=== PATIENT | female | born 1935 | race Caucasian/White ===

== ENCOUNTER 2017-06-17 23:15 | Emergency (ER) | payer MEDICARE, MEDICAID ==
[~2017-06-17] VITALS: Ht 162.6 cm; Wt 59.0 kg
[2017-06-17] MEDS ORDERED: FIBER CHOICE C1.5 GM PO (23:31)
[2017-06-17] MEDS ORDERED: OYSTER SHELL C500 M2 PO (23:32)
[2017-06-17] MEDS ORDERED: CARTIA XT240 MG PO (23:33)
[2017-06-17] MEDS ORDERED: LISINOPRIL40 MG PO (23:33)
[2017-06-17] MEDS ORDERED: METOPROLOL SUC100 M1 PO (23:34)
[2017-06-17] MEDS ORDERED: RANITIDINE HCL150 MG PO (23:35)
[2017-06-17] MEDS ORDERED: LEVOTHYROXINE0.1 MG PO (23:35)
[2017-06-17] MEDS ORDERED: FENOFIBRATE130 MG PO (23:36)
[2017-06-17] MEDS ORDERED: CHLORDIAZEPOXID10 MG PO (23:37)
--- OUTSIDE RECORDS SUMMARY | 2017-06-17 23:50 | External Medical Summary Rpt | CCD ---
Author Author , ROBERTO Organization ROBERTO Address Unknown Phone [email or web address] Providers Care Waxed Bag Machine Operator Name Role Phone JARRODSON EMERY, JARRODSON Unavailable Unavailable EMERY STROUD ALL, STROUD ALL Unavailable Unavailable GETACHEW, GETACHEW Unavailable Unavailable GETACHEW J, GETACHEW J Unavailable Unavailable GETACHEW J, GETACHEW J Unavailable Unavailable GETACHEW J G, GETACHEW J Unavailable Unavailable G GETACHEW J G, GETACHEW J Unavailable Unavailable G Vineet CHILEL, GETACHEW, Unavailable Unavailable J G VICENTE RAMIREZ, Unavailable Unavailable VICENTE RAMIREZ [facility], [facility] Un[facility], [facility] Unavailable Unavailable [facility], [facility], [facility] Unavailable Unavailable INC, [facility] NAVEEN JANET, NAVEEN Unavailable Unavailable JANET NAVEEN JANET, NAVEEN Unavailable Unavailable JANET [facility] Unavailable Unavailable IM[facility]ING [facility], [facility], Unavailable Unavailable [facility] SANDOVAL ELADIA, SANDOVAL Unavailable Unavailable ELADIA SANDOVAL ELADIA, SANDOVAL Unavailable Unavailable ELADIA BRIJESH SANDOVAL, Unavailable Unavailable BRIJESH SANDOVAL JR DWI, KRISTI Unavailable Unavailable JR DWI KRISTI TOBIAS DWI, KRISTI Unavailable Unavailable JR DWI Merline COSTA, Unavailable Unavailable Merline COSTA [facility], Unavailable Unavailable [facility] KARSON CANNON, Unavailable Unavailable KARSON CANNON [facility] Unavailable Unavailable #5, [facility] Purpose Continuity of Care Document - 11-22-2007 through 2016 Problems Code Diagnosis DOS Provider Status E039 HYPOTHYROID 01-19-2017 [facility] UNSPECIFIED I10 ESSENTIAL 01-19-2017 [facility] HYPERTENSIO N 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[facility] 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 N289 DISORDER OF 01-19-2017 [facility] URETER UNSPECIFIED E782 MIXED 09-22-2016 [facility] HYPERLIPIDE ISA [facility], [facility] N179 ACUTE 06-02-2016 [facility] UNSPECIFIED 4279 UNSPECIFIED 01-09-2014 [facility] DYSRHYTHMIA [facility] 91556 OTHER 11-01-2012 KRISTI TOBIAS SPECIFIED DWI CARDIAC DYSRHYTHMIA S 4019 UNSPECIFIED 09-17-2012 GETACHEW Hernandez ESSENTIAL HYPERTENSIO N 2449 UNSPECIFIED 09-06-2012 GETACHEW Hernandez HYPOTHYROID ISM 2724 OTHER AND 02-23-2012 GETACHEW Hernandez UNSPECIFIED HYPERLIPIDE ISA 5368 DYSPEPSIA&O 02-23-2012 GETACHEW Hernandez THER SPEC DISORDERS FUNCTION STOMACH 586 UNSPECIFIED 02-23-2012 GETACHEW Hernandez RENAL FAILURE 226 BENIGN 01-29-2012 SANDOVAL ELADIA NEOPLASM OF THYROID GLANDS 3804 IMPACTED 10-13-2011 GETACHEW Manley CERUMEN 66303 DISORDER OF 10-13-2011 GETACHEW Manley BONE AND CARTILAGE UNSPECIFIED 7295 PAIN IN 02-03-2011 [facility] TISSUES OF LIMB 81653 CORTICAL 12-16-2010 NAVEEN JANET SENILE CATARACT V0481 NEED 07-12-2010 [facility] PROPHYLACTI [facility] C VACCINATION &INOCULATIO N FLU 2689 UNSPECIFIED 02-22-2010 [facility] VITAMIN D [facility] DEFICIENCY 2859 UNSPECIFIED 02-22-2010 [facility] ANEMIA [facility] 460 ACUTE 07-27-2009 [facility] ITIS 193 MALIGNANT 02-08-2009 [facility] THYROID INC GLAND 32071 OTHER 02-08-2009 [place] DISEASES [facility] MEDICAL LUNG NOT IMAGING ELSEWHERE [facility] CLASSIFIED 54344 DIVERTICULO 07-16-2008 KASS[facility]DRA SIS OF [facility] COLON V7651 SPECIAL 07-16-2008 KASSANDRA SCREENING KARSON FOR MALIGNANT NEOPLASMS COLON Medications Na ND Rx Da Fi Fi Am Da Di Ph RX Ph St me C No te ll ll ou ys ag ar # ys at rm s nt no ma ic us Or Da si cy ia de te s n re d CH 00 10 10 0 12 30 77 CO Ac LO 55 -2 -2 0. [address] 50 4- 4- 00 37 ER ve IA 15 20 20 0 ZE 80 11 11 LINH PO 2 HN XI G DE 5 MG CA PS UL E CH 00 09 09 0 12 30 77 CO Ac LO 55 -2 -2 0. [address] 50 2- 2- 00 10 ER ve IA 15 20 20 0 ZE 80 11 11 LINH PO 2 HN XI G DE 5 MG CA PS UL E CH 00 08 08 0 12 30 77 CO Ac LO 55 -2 -2 0. [address] 50 5- 5- 00 99 ER ve IA 15 20 20 0 ZE 80 11 11 LINH PO 2 HN XI G DE 5 MG CA PS UL E CH 00 07 07 0 12 30 76 CO Ac LO 55 -2 -2 0. [address] 50 2- 2- 00 92 ER ve IA 15 20 20 0 ZE 80 11 11 LINH PO 2 HN XI G DE 5 MG CA PS UL E CH 00 06 06 0 12 30 76 NO Ac LO 55 -1 -1 0. [address] 50 7- 7- 00 51 LE ve IA 15 20 20 0 ET ZE 80 11 11 R PO 2 XI HE DE NR 5 Y MG CA PS UL E CH 00 04 05 1 12 30 76 CO Ac LO 55 -1 -1 0. [address] 50 5- 6- 00 88 ER ve IA 15 20 20 0 ZE 80 11 11 LINH PO 2 HN XI G DE 5 MG CA PS UL E CH 00 04 04 1 12 30 76 CO Ac LO 55 -1 -1 0. [address] 50 5- 5- 00 88 ER ve IA 15 20 20 0 ZE 80 11 11 LINH PO 2 HN XI G DE 5 MG CA PS UL E CH 00 03 03 0 12 30 75 CO Ac LO 55 -1 -1 0. [address] 50 4- 4- 00 53 ER ve IA 15 20 20 0 ZE 80 11 11 LINH PO 2 HN XI G DE 5 MG CA PS UL E CH 00 01 02 1 12 30 75 CO Ac LO 55 -1 -1 0. [address] 50 4- 2- 00 47 ER ve IA 15 20 20 0 ZE 80 11 11 LINH PO 2 HN XI G DE 5 MG CA PS UL E CH 00 01 01 1 12 30 75 CO Ac LO 55 -1 -1 0. [address] 50 4- 4- 00 47 ER ve IA 15 20 20 0 ZE 80 11 11 LINH PO 2 HN XI G DE 5 MG CA PS UL E CH 00 12 12 0 12 30 75 CO Ac LO 55 -1 -1 0. [address] 50 0- 0- 00 95 ER ve IA 15 20 20 0 ZE 80 10 10 LINH PO 2 HN XI G DE 5 MG CA PS UL E CH 00 11 11 0 12 30 74 CO Ac LO 55 -1 -1 0. [address] 50 1- 1- 00 60 ER ve IA 15 20 20 0 ZE 80 10 10 LINH PO 2 HN XI G DE 5 MG CA PS UL E CH 00 10 10 0 12 30 74 CO Ac LO 55 -0 -1 0. [address] 50 9- 1- 00 54 ER ve IA 15 20 20 0 ZE 80 10 10 LINH PO 2 HN XI G DE 5 MG CA PS UL E CH 00 08 09 1 12 30 73 CO Ac LO 55 -0 -0 0. [address] 50 5- 7- 00 01 ER ve IA 15 20 20 0 ZE 80 10 10 LINH PO 2 HN XI G DE 5 MG CA PS UL E CH 00 08 08 1 12 30 73 CO Ac LO 55 -0 -0 0. [address] 50 5- 5- 00 01 ER ve IA 15 20 20 0 ZE 80 10 10 LINH PO 2 HN XI G DE 5 MG CA PS UL E CH 00 06 07 1 12 30 73 CO Ac LO 55 -0 -0 0. [address] 50 8- 9- 00 39 ER ve IA 15 20 20 0 ZE 80 10 10 LINH PO 2 HN XI G DE 5 MG CA PS UL E CH 00 06 06 1 12 30 73 CO Ac LO 55 -0 -0 0. [address] 50 8- 8- 00 39 ER ve IA 15 20 20 0 ZE 80 10 10 LINH PO 2 HN XI G DE 5 MG CA PS UL E CH 00 02 05 3 12 30 72 CO Ac LO 55 -0 -0 0. [address] 50 5- 7- 00 24 ER ve IA 15 20 20 0 ZE 80 10 10 LINH PO 2 HN XI G DE 5 MG CA PS UL E CH 00 02 04 3 12 30 72 CO Ac LO 55 -0 -0 0. [address] 50 5- 7- 00 24 ER ve IA 15 20 20 0 ZE 80 10 10 LINH PO 2 HN XI G DE 5 MG CA PS UL E CH 00 02 03 3 12 30 72 CO Ac LO 55 -0 -0 0. [address] 50 5- 5- 00 24 ER ve IA 15 20 20 0 ZE 80 10 10 LINH PO 2 HN XI G DE 5 MG CA PS UL E CH 00 02 02 00 12 30 TO 72 CO Ac LO 55 -0 -1 0. TA [address] 50 5- 1- 00 L 24 ER ve IA 15 20 20 0 CA ZE 80 10 10 RE LINH PO 2 HN XI PH G DE AR 5 MA CY MG #5 CA PS UL E CH 00 07 01 02 12 30 TO 70 CO Ac LO 55 -2 -1 0. TA [address] 50 8- 4- 00 L 98 ER ve IA 15 20 20 0 CA ZE 80 09 10 RE LINH PO 2 HN XI PH G DE AR 5 MA CY MG #5 CA PS UL E BE 68 12 12 00 30 10 TO 71 NO Ac NZ 38 -0 -1 .0 TA 87 RF ti ON 20 1- 7- 00 L 33 LE ve AT 24 20 20 CA ET AT 80 09 09 RE R E 1 20 PH HE 0 AR NR MG MA Y CY CA PS #5 UL E CH 00 07 12 01 12 30 TO 70 CO Ac LO 55 -2 -1 0. TA [address] 50 8- 7- 00 L 98 ER ve IA 15 20 20 0 CA ZE 80 09 09 RE LINH PO 2 HN XI PH G DE AR 5 MA CY MG #5 CA PS UL E CH 00 07 11 00 12 30 TO 70 CO Ac LO 55 -2 -0 0. TA [address] 50 8- 5- 00 L 98 ER ve IA 15 20 20 0 CA ZE 80 09 09 RE LINH PO 2 HN XI PH G DE AR 5 MA CY MG #5 CA PS UL E CH 00 07 10 02 12 30 TO 70 CO Ac LO 55 -2 -0 0. TA [address] 50 7- 8- 00 L 70 ER ve IA 15 20 20 0 CA ZE 80 09 09 RE LINH PO 2 HN XI PH G DE AR 5 MA CY MG #5 CA PS UL E BE 68 09 09 00 30 30 TO 71 NO Ac NZ 38 -1 -2 .0 TA 16 RF ti ON 20 4- 4- 00 L 94 LE ve AT 24 20 20 CA ET AT 80 09 09 RE R E 1 20 PH HE 0 AR NR MG MA Y CY CA PS #5 UL E CH 00 07 09 01 12 30 TO 70 CO Ac LO 55 -2 -1 0. TA [address] 50 7- 0- 00 L 70 ER ve IA 15 20 20 0 CA ZE 80 09 09 RE LINH PO 2 HN XI PH G DE AR 5 MA CY MG #5 CA PS UL E CH 00 07 08 00 12 30 TO 70 CO Ac LO 55 -2 -1 0. TA [address] 50 7- 3- 00 L 70 ER ve IA 15 20 20 0 CA ZE 80 09 09 RE LINH PO 2 HN XI PH G DE AR 5 MA CY MG #5 CA PS UL E CH 00 05 07 01 12 30 TO 70 CO Ac LO 55 -2 -0 0. TA [address] 50 2- 2- 00 L 40 ER ve IA 15 20 20 0 CA ZE 80 09 09 RE LINH PO 2 HN XI PH G DE AR 5 MA CY MG #5 CA PS UL E CH 00 05 06 00 12 30 TO 70 CO Ac LO 55 -2 -0 0. TA [address] 50 2- 4- 00 L 40 ER ve IA 15 20 20 0 CA ZE 80 09 09 RE LINH PO 2 HN XI PH G DE AR 5 MA CY MG #5 CA PS UL E CH 00 04 05 00 12 30 TO 70 CO Ac LO 55 -2 -0 0. TA [address] 50 3- 7- 00 L 15 ER ve IA 15 20 20 0 CA ZE 80 09 09 RE LINH PO 2 HN XI PH G DE AR 5 MA CY MG #5 CA PS UL E Immunization Name Date Rout CVX Reac Dose Comm Prov Is Faci e tion ent ider Refu lity Give sed n IIV3 - 141 COOP No FAMI 6-20 ER J LY VACC 10 CARE INE SPLI ASSO T CIAT VIRU ES S 0.5 ML DOSA GE IM USE IIV3 11- 141 COOP No FAMI 0-20 ER, LY VACC 09 J G CARE INE SPLI ASSO T CIAT VIRU ES S 0.5 ML DOSA GE IM USE IIV3 10- 141 COOP No FAMI 1-20 ER, LY VACC 08 J G CARE INE SPLI ASSO T CIAT VIRU ES S 0.5 ML DOSA GE IM USE Procedures [place] [address] [facility] TONEAL [place] W/[place] [address] [place] [facility] RETROPERI 6 MEDICAL TONEAL IMAGING REAL TIME ASS W/IMAGE LIMITED XTRNL ECG 52894 [facility] & 48 HR 4 [facility] RECORDING INC INC EXTERNAL 59505 [facility] ECG 4 [facility] SCANNING INC INC ANALYSIS REPORT ECG 42798 [facility] ROUTINE 3 [facility] ECG INC INC W/LEAST 12 LDS TRCG ONLY W/O I&R ECG 33247 KRISTI JR KRISTI JR ROUTINE 3 DWI DWI ECG W/LEAST 12 LDS I&R ONLY XTRNL ECG 30884 [facility] & 48 HR 3 [facility] RECORDING INC INC EXTERNAL 03498 [facility] ECG 3 [facility] SCANNING INC INC ANALYSIS REPORT XTRNL ECG 29715 MOE GARAYSON 3 EMERY EMERY CONTINUOU S RHYTHM W/I&R UP TO 48 HRS REMOVAL 85129 GET[facility]W CHILEL J IMPACTED 2 CER[place] [address] [facility] THYROID 1 DIAGNOSTI DIAGNOSTI STIMULATI CS CS NG HORMONE TSH COMPREHEN 63963 [facility] SIVE 1 DIAGNOSTI DIAGNOSTI METABOLIC CS CS PANEL COLLECTIO 54255 [facility] N VENOUS 1 [facility] [place] [address] [facility] THYROID 1 [facility] ST[place]UL[place] [address] [facility] THYROXINE 1 [facility] TOTAL INC INC LIPID 33028 FAMILY GETACHEW J PANEL 1 EEG TECHNICIAN S TRANSFERA 66369 FAMILY GETACHEW J SE 1 CARE ASPARTATE ASSOCIATE AMINO S AST SGOT TRANSFERA 77857 FAMILY GETACHEW J SE 1 CARE ALANINE ASSOCIATE AMINO ALT S SGPT COLLECTIO 79655 FAMILY GETACHEW J N VENOUS 1 CARE BLOOD ASSOCIATE VENIPUNCT S URE COLLECTIO 57388 FAMILY GETACHEW J N VENOUS 0 CARE BLOOD [place] [address] [facility] TH[facility] 0 [facility] STIMULATI NG HORMONE TSH COMPREHEN 60046 [facility] SIVE 0 [facility] METABOLIC PANEL IIV3 89291 FAMILY GETACHEW J VACCINE 0 CARE SPLIT ASSOCIATE VIRUS 0.5 S ML DOSAGE IM USE ADMINISTR G0008 FAMILY GETACHEW J ATION OF 0 CARE INFLUENZA ASSOCIATE VIRUS S VACCINE BLOOD 69814 FAMILY FAMILY COUNT 0 CARE CARE COMPLETE ASSOCIATE ASSOCIATE AUTO&[place] [address] [facility] THYROXINE 0 [facility] [place] [address] [facility] FREE 0 [facility] THYROXINE INC INC COLLECTIO 81750 [facility] N VENOUS 0 [facility] [place] [address] [facility] THYROID 0 [facility] STIMULATI INC INC NG HORMONE TSH DXA BONE 59555 [facility] DENSITY 0 [facility] STUDY 1/> INC INC SITES AXIAL SKEL BLOOD 28265 FAMILY COSTA, COUNT 9 CARE Merline KUMARI COMPLETE ASSOCIATE AUTO&AUTO S DIFRNTL WBC ADMINISTR G0008 Vineet SILVER ATION OF 9 CARE G INFLUENZA ASSOCIATE VIRUS S VACCINE IIV3 35943 Vineet SILVER VACCINE 9 CARE G SPLIT ASSOCIATE VIRUS 0.5 S ML DOSAGE IM USE 25 03949 [facility] HYDROXY 9 [facility] INCLUDES FRACTIONS IF PERFORMED COMPREHEN 22914 [facility] SIVE 9 [facility] [place] [address] [facility] THYROID 9 [facility] STIMULATI NG HORMONE TSH COLLECTIO 20757 Vineet SILVER N VENOUS 9 CARE G BLOOD ASSOCIATE VENIPUNCT S URE BLOOD 29994 FAMILY COSTA, COUNT 9 CARE Merline KUMARI COMPLETE ASSOCIATE AUTO&AUTO S DIFRNTL WBC ALBUMIN 72563 Vineet SILVER URINE 9 CARE G MICROALBU ASSOCIATE MIN S SEMIQUANT ITATIVE CREATININ 84034 Vineet SILVER E OTHER 9 CARE G SOURCE ASSOCIATE S RADIOLOGI 89450 [facility] EXAM 9 MEDICAL VICENTE CHEST 2 IMAGING VIEWS ASSOCIATE [place]ONTAL&[place] [address] [facility] THYROXINE 9 [facility] TOTAL INC INC COLLECTIO 01752 [facility] N VENOUS 9 [facility] BLOOD INC INC VENIPUNCT URE CALCIUM 46291 [facility] TOTAL 9 [place] [address] [facility] G[facility] THYROID 9 [facility] INC NG HORMONE TSH COMPREHEN 62973 [facility] SIVE 9 [facility] METABOLIC PANEL BLOOD 54857 [facility] COUNT 9 [facility] [place] [address] [facility] THYROID 9 [facility] STIMULATI NG HORMONE TSH LIPID 71289 [facility] PANEL 9 [facility] BASIC 81722 [facility] METABOLIC 8 [facility] PANEL CALCIUM TOTAL COLLECTIO 87846 Vineet SILVER N VENOUS 8 CARE G BLOOD ASSOCIATE VENIPUNCT S URE COLOREC G0121 SCHULTHAD CANNON CANCR 8 , KARSON , KARSON SCR; COLNSCPY NOT MEET HI RISK CYANOCOBA 90126 [facility] KENIA 8 [facility] VITAMIN B-12 [place] [address] [facility] FOLIC 8 [facility] [place] [address] [facility] IRON 8 [facility] COLLECTIO 35603 Vineet SILVER N VENOUS 8 CARE G BLOOD ASSOCIATE VENIPUNCT S URE COLLECTIO 34154 Vineet SILVER N VENOUS 8 CARE G BLOOD ASSOCIATE VENIPUNCT S URE COMPREHEN 38225 [facility] SIVE 8 [facility] METABOLIC PANEL IIV3 23574 Vineet SILVER VACCINE 8 CARE G SPLIT ASSOCIATE VIRUS 0.5 S ML DOSAGE IM USE ADMINISTR G0008 Vineet SILVER ATION OF 8 CARE G INFLUENZA ASSOCIATE VIRUS S VACCINE Encounters Encounter Start End Date Code Location Performer Type Date OFFICE 12664 FAMILY CHILEL OUTPATIEN 7 7 CARE T VISIT ASSOCIATE 25 S MINUTES OFFICE 37026 FAMILY CHILEL OUTPATIEN 7 7 CARE T VISIT ASSOCIATE 25 S, PSC MINUTES [facility] T OFFICE 77457 GETACHEW Manley GETACHEW J OUTPATIEN 3 3 G G T VISIT 15 MINUTES [facility] T OFFICE 91669 GETACHEW Manley OUTPATIEN 3 3 G G T VISIT 25 MINUTES OFFICE 93286 GETACHEW Vineet GETACHEW J OUTPATIEN 2 2 G G T VISIT 25 MINUTES OFFICE 48049 LORI SANDOVAL OUTPATIEN 2 2 ELADIA ELADIA T VISIT 5 MINUTES [facility] - 1 1 [facility] OUTPATIEN INC T OFFICE 95073 GETACHEW Manley OUTPATIEN 1 1 CARE T VISIT ASSOCIATE 15 S MINUTES OFFICE 63190 NAVEENNATALIA HODGE OUTPATIEN 1 1 [facility] 30 MINUTES OFFICE 06573 GETACHEW Manley OUTPATIEN 1 1 CARE T VISIT ASSOCIATE 15 S MINUTES OFFICE 78492 GETACHEW Manley OUTPATIEN 0 0 CARE T VISIT ASSOCIATE 25 S MINUTES OFFICE 90806 Vineet CHILEL OUTPATIEN 0 0 CARE G T VISIT ASSOCIATE 25 S MINUTES [facility] T OFFICE 20693 Vineet CHILEL OUTPATIEN 0 0 CARE G T VISIT ASSOCIATE 25 S MINUTES OFFICE 08222 FAMILY IGOR OUTPATIEN 9 9 CARE R KENYETTA T VISIT ASSOCIATE 15 S MINUTES OFFICE 96143 Vineet SILVER OUTPATIEN 9 9 CARE G T VISIT ASSOCIATE 15 S MINUTES OFFICE 71901 SOLOM[facility] NGO 9 9 CARE R KENYETTA T VISIT ASSOCIATE 15 S MINUTES OFFICE 07502 Vineet SILVER 9 9 CARE G T VISIT ASSOCIATE 25 S MINUTES [facility]OSP[facility] - 9 9 [facility] T OFFICE 03939 LORI SANDOVAL OUTPATIEN 9 9 BRIJESH G BRIJESH G T VISIT 15 MINUTES OFFICE 35610 Vineet SILVER 9 9 CARE G T VISIT ASSOCIATE 25 S MINUTES OFFICE 14708 Vineet SILVER 8 8 CARE G T VISIT ASSOCIATE 25 S MINUTES OFFICE 28249 KASSANDRA CANNON CONSULTAT 8 8 , KARSON TY ION NEW/ESTAB PATIENT 60 MIN OFFICE 10152 Vineet SILVER 8 8 CARE G T VISIT ASSOCIATE 15 S MINUTES OFFICE 37996 Vineet SILVER 8 8 CARE G T VISIT ASSOCIATE 25 S MINUTES OFFICE 20935 Vineet SILVER 8 8 CARE G T VISIT ASSOCIATE 25 S MINUTES OFFICE 14728 FAMILY FAMILY CARBAJAL 8 8 CARE CARE T VISIT ASSOCIATE ASSOCIATE 15 S S MINUTES
--- OUTSIDE RECORDS SUMMARY | 2017-06-17 23:50 | External Medical Summary Rpt | CCD ---
Author Author , ROBERTO Organization ROBERTO Address Unknown Phone [email or web address] Care Team Providers Care Senior Strategy Manager Name Role Phone JARRODSON EMERY, JARRODSON Unavailable [...] JANET NAVEEN JANET, NAVEEN Unavailable Unavailable JANET [facility] Unavailable Unavailable IMAGING ASS, [facility], [...] AND ASSOCIATES URETER UNSPECIFIED E782 MIXED 09-22-2016 [facility] CARE HYPERLIPIDE ISA ASSOCIATES, PSC N179 ACUTE 06-02-2016 [place] [facility] ASS UNSPECIFIED 4279 UNSPECIFIED 01-09-2014 [facility] DYSRHYTHMIA INC 49328 OTHER 11-01-2012 KRISTI TOBIAS SPECIFIED DWI CARDIAC [...] GLANDS 3804 IMPACTED 10-13-2011 GETACHEW Manley CERUMEN 44604 DISORDER OF 10-13-2011 GETACHEW Manley BONE AND CARTILAGE UNSPECIFIED 7295 PAIN IN 02-03-2011 [facility] TISSUES OF LIMB 50368 CORTICAL 12-16-2010 NAVEEN JANET SENILE CATARACT V0481 NEED 07-12-2010 [facility] PROPHYLACTI ASSOCIATES C VACCINATION &INOCULATIO N FLU 2689 UNSPECIFIED 02-22-2010 [facility] VITAMIN D ASSOCIATES DEFICIENCY 2859 UNSPECIFIED 02-22-2010 [facility] ANEMIA [facility] 460 ACUTE 07-27-2009 [facility] NASOPHARYNG ASSOCIATES ITIS 193 MALIGNANT 02-08-2009 [facility] NEOPLASM OF [facility] THYROID INC GLAND 98935 OTHER 02-08-2009 [place] DISEASES OF MEDICAL LUNG NOT IMAGING ELSEWHERE ASSOCIATES CLASSIFIED 99904 DIVERTICULO 07-16-2008 KASSANDRA SIS OF KARSON COLON [...] Procedure [place] [address] [facility] GLEASON RETROPERI 6 [facility] TONEAL [place] W/[place] [address] [place] [facility] ALL RETROPERI 6 MEDICAL TONEAL IMAGING REAL TIME ASS W/IMAGE LIMITED XTRNL ECG 37868 [facility] GLEASON & 48 HR 4 [facility] RECORDING INC INC EXTERNAL 76486 [facility] GLEASON ECG 4 [facility] SCANNING INC INC ANALYSIS REPORT ECG 39242 [facility] GLEASON ROUTINE 3 [facility] ECG INC INC W/LEAST 12 LDS TRCG ONLY W/O I&R ECG 61663 KRISTI JR KRISTI JR ROUTINE 3 DWI DWI ECG W/LEAST 12 LDS I&R ONLY XTRNL ECG 14857 [facility] GLEASON & 48 HR 3 [facility] RECORDING INC INC EXTERNAL 70962 [facility] GLEASON ECG 3 [facility] SCANNING INC INC ANALYSIS REPORT XTRNL ECG 96392 MOE GARAYSON 3 EMERY EMERY CONTINUOU S RHYTHM W/I&R UP TO 48 HRS REMOVAL 84704 GETACHEW CHILEL J IMPACTED 2 CERUM[place] [address] [facility] THYROID 1 DIAGNOSTI DIAGNOSTI STIMULATI CS CS NG HORMONE TSH COMPREHEN 21908 QUEST QUEST SIVE 1 DIAGNOSTI DIAGNOSTI METABOLIC CS CS PANEL COLLECTIO 45536 [facility] GLEASON N VENOUS 1 [facility] [place] [address] [facility] G[facility] THYROID 1 [facility] STIMULATI [place] [address] [facility] GLE[facility] THYROXINE 1 [facility] TOTAL INC INC LIPID 86211 FAMILY GETACHEW J PANEL 1 COKE OVEN MASON S TRANSFERA 79111 FAMILY GETACHEW J SE 1 CARE ASPARTATE ASSOCIATE AMINO S AST SGOT TRANSFERA 22708 FAMILY GETACHEW J SE 1 CARE ALANINE ASSOCIATE AMINO ALT S SGPT COLLECTIO 47167 FAMILY GETACHEW J N VENOUS 1 CARE BLOOD ASSOCIATE VENIPUNCT S URE COLLECTIO 28825 FAMILY GETACHEW J N VENOUS 0 CARE [place]LO[place] [address] [facility] TH[facility] 0 [facility] STIMULATI NG HORMONE TSH COMPREHEN 17435 [facility] SIVE 0 [facility] METABOLIC PANEL IIV3 35126 FAMILY GETACHEW J VACCINE 0 CARE SPLIT ASSOCIATE VIRUS 0.5 S ML DOSAGE IM USE ADMINISTR G0008 FAMILY GETACHEW J ATION OF 0 CARE INFLUENZA ASSOCIATE VIRUS S VACCINE BLOOD 23125 FAMILY FAMILY COUNT 0 CARE CARE COMPLETE ASSOCIATE ASSOCIATE AUTO&[place] [address] [facility] GLE[facility] THYROXINE 0 [facility] [place] [address] [facility] GLE[facility] FREE 0 [facility] THYROXINE INC INC COLLECTIO 82865 [facility] G[facility]AS[facility] N VENOUS 0 [facility] [place] [address] [facility] THYROID 0 [facility] STIMULATI INC INC NG HORMONE TSH DXA BONE 59399 [facility] G[facility] DENSITY 0 [facility] STUDY 1/> INC INC SITES AXIAL SKEL BLOOD 05893 FAMILY COSTA, COUNT 9 CARE Merline KUMARI COMPLETE ASSOCIATE AUTO&AUTO S DIFRNTL WBC ADMINISTR G0008 Vineet SILVER ATION OF 9 CARE G INFLUENZA ASSOCIATE VIRUS S VACCINE IIV3 68660 Vineet SILVER VACCINE 9 CARE G SPLIT ASSOCIATE VIRUS 0.5 S ML DOSAGE IM USE 25 43843 [facility] HYDROXY 9 [facility] INCLUDES FRACTIONS IF PERFORMED COMPREHEN 81361 [facility] SIVE 9 [facility] [place] [address] [facility] THYROID 9 [facility] STIMULATI NG HORMONE TSH COLLECTIO 74401 Vineet SILVER N VENOUS 9 CARE G BLOOD ASSOCIATE VENIPUNCT S URE BLOOD 35506 FAMILY COSTA, COUNT 9 CARE Merline KUMARI COMPLETE ASSOCIATE AUTO&AUTO S DIFRNTL WBC ALBUMIN 72074 Vineet SILVER URINE 9 CARE G MICROALBU ASSOCIATE MIN S SEMIQUANT ITATIVE CREATININ 29268 Vineet SILVER E OTHER 9 CARE G SOURCE ASSOCIATE S RADIOLOGI 04765 [facility] Alex RAMIREZ EXAM 9 MEDICAL VICENTE CHEST 2 IMAGING VIEWS ASSOCIATE FRONTAL&[place] [address] ROSIBEL GLEASON THYROXINE 9 [facility] TOTAL INC INC COLLECTIO 68655 [facility] G[facility] N VENOUS 9 [facility] BLOOD INC INC VENIPUNCT URE CALCIUM 78515 [facility] GLEASON TOTAL 9 [place] [address] [facility] G[facility] THYROID 9 [facility] NG HORMONE TSH COMPREHEN 15612 [facility] SIVE 9 [facility] METABOLIC PANEL BLOOD 48704 [facility] OF COUNT 9 [facility] [place] [address] [facility] THYROID 9 [facility] STIMULATI NG HORMONE TSH LIPID 85966 [facility] PANEL 9 [facility] BASIC 80722 [facility] METABOLIC 8 [facility] PANEL CALCIUM TOTAL COLLECTIO 26376 Vineet SILVER N VENOUS 8 CARE G BLOOD ASSOCIATE VENIPUNCT S URE COLOREC G0121 SCHULTHAD CANNON CANCR 8 , KARSON , KARSON SCR; COLNSCPY NOT MEET HI RISK CYANOCOBA 34851 [facility] [place] 8 [facility] VITAMIN B-12 [place] [address] [facility] FOLIC 8 [facility] [place] [address] [facility] IRON 8 [facility] COLLECTIO 55539 Vineet SILVER N VENOUS 8 CARE G BLOOD ASSOCIATE VENIPUNCT S URE COLLECTIO 26274 Vineet SILVER N VENOUS 8 CARE G BLOOD ASSOCIATE VENIPUNCT S URE COMPREHEN 99585 [facility] SIVE 8 [facility] METABOLIC PANEL IIV3 42698 Vineet SILVER VACCINE 8 CARE G SPLIT ASSOCIATE VIRUS 0.5 S ML DOSAGE IM USE ADMINISTR G0008 Vineet SILVER ATION OF 8 CARE G INFLUENZA ASSOCIATE VIRUS S VACCINE Encounters Encounter Start End Date Code Location Performer Type Date OFFICE 02093 FAMILY CHILEL OUTPATIEN 7 7 CARE T VISIT ASSOCIATE 25 S MINUTES OFFICE 44107 FAMILY CHILEL OUTPATIEN 7 7 CARE T VISIT ASSOCIATE 25 S, PSC MINUTES [facility]OSP[facility] - 6 6 [facility] - 3 3 [facility] INC T OFFICE 46654 GETACHEW Manley GETACHEW J OUTPATIEN 3 3 G G T VISIT 15 MINUTES [facility]OSP[facility] - 3 3 [facility] OUT[facility] INC T OFFICE 07344 GETACHEW Manley OUTPATIEN 3 3 G G T VISIT 25 MINUTES OFFICE 55063 GETACHEW Vineet GETACHEW J OUTPATIEN 2 2 G G T VISIT 25 MINUTES OFFICE 71103 LORI SANDOVAL OUTPATIEN 2 2 ELADIA ELADIA T VISIT 5 MINUTES [facility]OSPITAL [facility] - [facility] 1 [facility] T OFFICE 66398 GETACHEW Manley OUTPATIEN 1 1 CARE T VISIT ASSOCIATE 15 S MINUTES OFFICE 20719 NAVEENNATALIA HODGE OUTPATIEN 1 1 JANET JANET [facility] 30 MINUTES OFFICE 85074 GETACHEW Manley OUTPATIEN 1 1 CARE T VISIT ASSOCIATE 15 S MINUTES OFFICE 78422 GETACHEW Manley OUTPATIEN 0 0 CARE T VISIT ASSOCIATE 25 S MINUTES OFFICE 73588 Vineet CHILEL OUTPATIEN 0 0 CARE G T VISIT ASSOCIATE 25 S MINUTES [facility] - [facility] 0 [facility] - [facility] 0 [facility] OUTPATIEN INC T OFFICE 94609 Vineet CHILEL OUTPATIEN 0 0 CARE G T VISIT ASSOCIATE 25 S MINUTES OFFICE 40106 FAMILY IGOR OUTPATIEN 9 9 CARE R KENYETTA T VISIT ASSOCIATE 15 S MINUTES OFFICE 47832 Vineet SILVRE OUTPATIEN 9 9 CARE G T VISIT ASSOCIATE 15 S MINUTES OFFICE 26999 SOLOMON NGO 9 9 CARE R KENYETTA T VISIT ASSOCIATE 15 S MINUTES OFFICE 43597 Vineet SILVER 9 9 CARE G T VISIT ASSOCIATE 25 S MINUTES HOSPITAL [facility] - 9 9 [facility] OUTPATIEN INC T OFFICE 50970 LORI SANDOVAL OUTPATIEN 9 9 BRIJESH G BRIJESH G T VISIT 15 MINUTES OFFICE 31812 Vineet SILVER 9 9 CARE G T VISIT ASSOCIATE 25 S MINUTES OFFICE 84467 Vineet SILVER 8 8 CARE G T VISIT ASSOCIATE 25 S MINUTES OFFICE 56665 KASSANDRA CANNON CONSULTAT 8 8 , KARSON TY ION NEW/ESTAB PATIENT 60 MIN OFFICE 36044 Vineet SILVER 8 8 CARE G T VISIT ASSOCIATE 15 S MINUTES OFFICE 88316 Vineet SILVER 8 8 CARE G T VISIT ASSOCIATE 25 S MINUTES OFFICE 28065 Vineet SILVER 8 8 CARE G T VISIT ASSOCIATE 25 S MINUTES OFFICE 56041 FAMILY FAMILY CARBAJAL 8 8 CARE CARE T VISIT ASSOCIATE ASSOCIATE 15 S S MINUTES
--- OUTSIDE RECORDS SUMMARY | 2017-06-17 23:52 | External Medical Summary Rpt | CCD ---
Author Author , ROBERTO Case ROBERTO Address Unknown Phone [email or web address] Care Team Providers Care Schedule Planning Manager Name Role Phone MOE EMERY, MOE Unavailable Unavailable EMERY STROUD ALL, STROUD ALL [...] JANET NAVEEN JANET, NAVEEN Unavailable Unavailable JANET [facility] Unavailable Unavailable IMAGING ASS, [facility], [...] AND ASSOCIATES URETER UNSPECIFIED E782 MIXED 09-22-2016 [facility] CARE HYPERLIPIDE ISA ASSOCIATES, PSC N179 ACUTE 06-02-2016 [place] [facility] UNSPECIFIED 4279 UNSPECIFIED 01-09-2014 [facility] DYSRHYTHMIA INC 60148 OTHER 11-01-2012 KRISTI SPECIFIED [facility] CARDIAC DYSRHYTHMIA S 4019 UNSPECIFIED 09-17-2012 GETACHEW Hernandez ESSENTIAL HYPERTENSIO N 2449 UNSPECIFIED 09-06-2012 GETACHEW Hernandez HYPOTHYROID ISM 2724 OTHER AND 02-23-2012 GETACHEW Hernandez UNSPECIFIED HYPERLIPIDE ISA 5368 DYSPEPSIA&O 02-23-2012 GETACHEW Hernandez THER SPEC DISORDERS FUNCTION STOMACH 586 UNSPECIFIED 02-23-2012 GETACHEW Hernandez RENAL FAILURE 226 BENIGN 01-29-2012 SANDOVAL ELADIA NEOPLASM OF THYROID GLANDS 3804 IMPACTED 10-13-2011 GETACHEW Manley CERUMEN 92635 DISORDER OF 10-13-2011 GETACHEW Manley BONE AND CARTILAGE UNSPECIFIED 7295 PAIN IN 02-03-2011 [facility] TISSUES OF LIMB 90370 CORTICAL 12-16-2010 NAVEEN JANET SENILE CATARACT V0481 NEED 07-12-2010 [facility] PROPHYLACTI ASSOCIATES C VACCINATION &INOCULATIO N FLU 2689 UNSPECIFIED 02-22-2010 [facility] VITAMIN D ASSOCIATES DEFICIENCY 2859 UNSPECIFIED 02-22-2010 [facility] ANEMIA [facility] 460 ACUTE 07-27-2009 [facility] CARE NASOPHARYNG ASSOCIATES ITIS 193 MALIGNANT 02-08-2009 [facility] NEOPLASM OF [facility] THYROID INC GLAND 78754 OTHER 02-08-2009 [place] DISEASES OF MEDICAL LUNG NOT IMAGING ELSEWHERE ASSOCIATES CLASSIFIED 86540 DIVERTICULO 07-16-2008 KASSANDRA SIS OF KARSON COLON [...] 20 20 0 ZE 80 11 11 ILNH PO 2 HN XI G DE 5 [...] 0.5 ML DOSA GE IM USE IIV3 - 141 COOP No FAMI 0-20 ER, LY VACC 09 J G CARE INE SPLI ASSO T CIAT VIRU ES S 0.5 ML DOSA GE IM USE IIV3 10- 141 COOP No FAMI 1-20 ER, LY VACC 08 J G CARE INE SPLI ASSO T CIAT VIRU ES S 0.5 ML DOSA GE IM USE Procedures Procedure [place] [address] [facility] G[facility] RETROPERI 6 [facility] TONEAL INC [place] REAL TIME W/[place] [address] [place] [facility] RETROPERI 6 MEDICAL TONEAL IMAGING REAL TIME ASS W/IMAGE LIMITED XTRNL ECG 04647 [facility] GLEASON & 48 HR 4 [facility] RECORDING INC INC EXTERNAL 56991 [facility] GLEASON ECG 4 [facility] SCANNING INC INC ANALYSIS REPORT ECG 70123 [facility] G[facility]ON ROUTINE 3 [facility] ECG INC INC W/LEAST 12 LDS TRCG ONLY W/O I&R ECG 32926 KRISTI JR KRISTI JR ROUTINE 3 DWI DWI ECG W/LEAST 12 LDS I&R ONLY XTRNL ECG 10162 [facility] GLEASON & 48 HR 3 [facility] RECORDING INC INC XTRNL ECG 82207 MOE GARAYSON 3 EMERY EMERY CONTINUOU S RHYTHM W/I&R UP TO 48 HRS EXTERNAL 54963 [facility] GLEASON ECG 3 [facility] SCANNING INC INC ANALYSIS REPORT REMOVAL 12086 GETACHEW CHILEL J IMPACTED 2 C[place]UM[place] [address] [facility] QUEST THYROID 1 DIAGNOSTI DIAGNOSTI STIMULATI CS CS NG HORMONE TSH COMPREHEN 35191 QUEST QUEST SIVE 1 DIAGNOSTI DIAGNOSTI METABOLIC CS CS PANEL COLLECTIO 36785 [facility] GLEASON N VENOUS 1 [facility] [place] [address] [facility] G[facility]ON THYROID 1 [facility] STIMULATI [place] [address] [facility] G[facility] THYROXINE 1 [facility] TOTAL INC INC TRANSFERA 28866 FAMILY GETACHEW J SE 1 CARE ASPARTATE ASSOCIATE AMINO S AST SGOT TRANSFERA 53636 FAMILY CHILEL J SE 1 CARE ALANINE ASSOCIATE AMINO ALT S SGPT COLLECTIO 33699 FAMILY CHILEL J N VENOUS 1 CARE BLOOD ASSOCIATE VENIPUNCT S URE LIPID 03402 FAMILY CHILEL J PANEL 1 TRANSPORTATION DRIVER S COLLECTIO 30972 FAMILY GETAHCEW J N VENOUS 0 CARE BLOOD ASSOCIATE VENIPUNCT S URE IIV3 80958 FAMILY CHILEL J VACCINE 0 CARE SPLIT ASSOCIATE VIRUS 0.5 S ML DOSAGE IM USE COMPREHEN 13704 [facility] SIVE 0 [facility] [place] [address] [facility] THYROID 0 [facility] STIMULATI NG HORMONE TSH BLOOD 23260 FAMILY FAMILY COUNT 0 CARE CARE COMPLETE ASSOCIATE ASSOCIATE AUTO&AUTO S S DIFRNTL WBC ADMINISTR G0008 FAMILY GETACHEW J ATION OF 0 CARE INFLUENZA [place] [address] ROS[facility] G[facility] THYROID 0 [facility] STIMULAT[place] [address] [facility] GLEASON FREE 0 [facility] [place] [address] [facility] THYROXINE 0 [facility] TOTAL INC INC COLLECTIO 55088 [facility] G[facility] N VENOUS 0 [facility] BLOOD INC INC VENIPUNCT URE DXA BONE 92743 [facility] DENSITY 0 [facility] STUDY 1/> INC INC SITES AXIAL SKEL BLOOD 68168 FAMILY COSTA, COUNT 9 CARE Merline KUMARI COMPLETE ASSOCIATE AUTO&AUTO S DIFRNTL WBC ADMINISTR G0008 Vineet SILVER ATION OF 9 CARE G INFLUENZA ASSOCIATE VIRUS S VACCINE IIV3 93135 Vineet SILVER VACCINE 9 CARE G SPLIT ASSOCIATE VIRUS 0.5 S ML DOSAGE IM USE COMPREHEN 38154 [facility] SIVE 9 [facility] INC METABOLIC PANEL 25 42190 [facility] HYDROXY 9 [facility] INC INCLUDES FRACTIONS IF PERFORMED COLLECTIO 24013 Vineet SILVER N VENOUS 9 CARE G BLOOD [place] [address] [facility] THYROID 9 [facility] INC STIMULATI NG HORMONE TSH BLOOD 84814 FAMILY COSTA, COUNT 9 CARE Merline KUMARI COMPLETE ASSOCIATE AUTO&AUTO S DIFRNTL WBC CREATININ 99089 Vineet SILVER E OTHER 9 CARE G SOURCE ASSOCIATE S ALBUMIN 28933 Vineet SILVER URINE 9 CARE G MICROALBU ASSOCI[place] [address] [facility] GLEASON THYROXINE 9 [facility] TOTAL INC INC COLLECTIO 15399 [facility] G[facility] N VENOUS 9 [facility] BLOOD INC INC VENIPUNCT URE CALCIUM 22950 [facility] GLEASON TOTAL 9 [place] [address] [facility] G[facility] THYROID 9 [facility] STIMULATI INC INC NG HORMONE TSH RADIOLOGI 43979 [facility] Johnson EXAM 9 [facility] CHEST 2 [facility] INC VIEWS FRONTAL&L ATERAL BLOOD 36551 [facility] COUNT 9 [facility] [place] [address] [facility] THYROID 9 [facility] STIMULATI NG HORMONE TSH COMPREHEN 00650 [facility] SIVE 9 [facility] METABOLIC PANEL LIPID 84107 [facility] PANEL 9 [facility] COLLECTIO 47395 Vineet SILVER N VENOUS 8 CARE G BLOOD ASSOCIATE VENIPUNCT S URE BASIC 39383 [facility] METABOLIC 8 [facility] PANEL CALCIUM TOTAL COLOREC G0121 SCHULSTAD SCHULSTAD CANCR 8 , KARSON , KARSON SCR; COLNSCPY NOT MEET HI RISK CYANOCOBA 89419 [facility] [place] 8 [facility] VITAMIN B-12 [place] [address] [facility] FOLIC 8 [facility] [place] [address] [facility] IRON 8 [facility] COLLECTIO 68026 Vineet SILVER N VENOUS 8 CARE G BLOOD ASSOCIATE VENIPUNCT S URE COMPREHEN 50825 [facility] SIVE 8 [facility] METABOLIC PANEL IIV3 58915 Vineet SILVER VACCINE 8 CARE G SPLIT ASSOCIATE VIRUS 0.5 S ML DOSAGE IM USE COLLECTIO 72905 Vineet SILVER VENOUS 8 CARE G BLOOD ASSOCIATE VENIPUNCT S URE ADMINISTR G0008 Vineet SILVER ATION OF 8 CARE G INFLUENZA ASSOCIATE VIRUS S VACCINE Encounters Encounter Start End Date Code Location Performer Type Date OFFICE 06334 FAMILY CHILEL OUTPATIEN 7 7 CARE T VISIT ASSOCIATE 25 S MINUTES OFFICE 24045 FAMILY CHILEL OUTPATIEN 7 7 CARE T VISIT ASSOCIATE 25 S, PSC MINUTES [facility] 4 [facility] 3 [facility] INC T OFFICE 98692 GETACHEW Manley GETACHEW Manley OUTPATIEN 3 3 G G T VISIT 15 MINUTES [facility] - [facility] 3 [facility] INC T OFFICE 46572 GETACHEW Manley OUTPATIEN 3 3 G G T VISIT 25 MINUTES OFFICE 71182 GETACHEW Vineet GETACHEW J OUTPATIEN 2 2 G G T VISIT 25 MINUTES OFFICE 43506 LORI SANDOVAL OUTPATIEN 2 2 ELADIA ELADIA T VISIT 5 MINUTES [facility] - 1 1 [facility] T OFFICE 84763 GETACHEW Manley OUTPATIEN 1 1 CARE T VISIT ASSOCIATE 15 S MINUTES OFFICE 84752 NAVEEN NAVEEN OUTPATIEN 1 1 JANET JANET [facility] 30 MINUTES OFFICE 54447 GETACHEW Manley OUTPATIEN 1 1 CARE T VISIT ASSOCIATE 15 S MINUTES OFFICE 42254 GETACHEW Manley OUTPATIEN 0 0 CARE T VISIT ASSOCIATE 25 S MINUTES OFFICE 13902 Vineet CHILEL OUTPATIEN 0 0 CARE G T VISIT ASSOCIATE 25 S MINUTES [facility] 0 [facility] 0 [facility] T OFFICE 56516 FAMILY Vineet CHILEL OUTPATIEN 0 0 CARE G T VISIT ASSOCIATE 25 S MINUTES OFFICE 28051 FAMILY IGOR OUTPATIEN 9 9 CARE R KENYETTA T VISIT ASSOCIATE 15 S MINUTES OFFICE 09918 FAMILY Vineet CHILEL OUTPATIEN 9 9 CARE G T VISIT ASSOCIATE 15 S MINUTES OFFICE 38195 SOLOMON NGO 9 9 CARE R KENYETTA T VISIT ASSOCIATE 15 S MINUTES OFFICE 71615 Vineet SILVER 9 9 CARE G T VISIT ASSOCIATE 25 S MINUTES OFFICE 38287 LORILORI OUTPATIEN 9 9 BRIJESH Hernandez BRIJESH G T VISIT 15 MINUTES [facility] - 9 9 [facility] OUTPAT[facility] INC T OFFICE 89152 Vineet SILVER 9 9 CARE G T VISIT ASSOCIATE 25 S MINUTES OFFICE 80516 Vineet SILVER 8 8 CARE G T VISIT ASSOCIATE 25 S MINUTES OFFICE 88726 KASSANDRA CANNON CONSULTAT 8 8 , KARSON TY ION NEW/ESTAB PATIENT 60 MIN OFFICE 46957 Vineet SILVER 8 8 CARE G T VISIT ASSOCIATE 15 S MINUTES OFFICE 72969 Vineet SILVER 8 8 CARE G T VISIT ASSOCIATE 25 S MINUTES OFFICE 17639 Vineet SILVER 8 8 CARE G T VISIT ASSOCIATE 25 S MINUTES OFFICE 32124 FAMILY FAMILY CARBAJAL 8 8 CARE CARE T VISIT ASSOCIATE ASSOCIATE 15 S S MINUTES
--- OUTSIDE RECORDS SUMMARY | 2017-06-17 23:52 | External Medical Summary Rpt | CCD ---
Author Author , ROBERTO Case ROBERTO Address Unknown Phone [email or web address] Care Team Providers Care Electrical Equipment Technician Name Role Phone MOE EMERY, MOE Unavailable [...] JANET NAVEEN JANET, NAVEEN Unavailable Unavailable JANET [facility] Unavailable Unavailable IMAGING ASS, [facility] [place] [facility], [...] AND ASSOCIATES URETER UNSPECIFIED E782 MIXED 09-22-2016 [facility] CARE HYPERLIPIDE ISA ASSOCIATES, PSC N179 ACUTE 06-02-2016 [facility] UNSPECIFIED 4279 UNSPECIFIED 01-09-2014 [facility]ARD[facility] DYSRHYTHMIA INC 26193 OTHER 11-01-2012 KRISTI SPECIFIED DWI CARDIAC DYSRHYTHMIA [...] GLANDS 3804 IMPACTED 10-13-2011 GETACHEW Manley CERUMEN 58892 DISORDER OF 10-13-2011 GETACHEW Manley BONE AND CARTILAGE UNSPECIFIED 7295 PAIN IN 02-03-2011 [facility] TISSUES OF LIMB 95278 CORTICAL 12-16-2010 NAVEEN JANET SENILE CATARACT V0481 NEED 07-12-2010 [facility] PROPHYLACTI [facility] C VACCINATION &INOCULATIO N FLU 2689 UNSPECIFIED 02-22-2010 [facility] VITAMIN D [facility] DEFICIENCY 2859 UNSPECIFIED 02-22-2010 [facility] ANEMIA [facility] 460 ACUTE 07-27-2009 [facility] NASOPHARYNG ASSOCIATES ITIS 193 MALIGNANT 02-08-2009 [facility] NEOPLASM OF [facility] THYROID INC GLAND 73357 OTHER 02-08-2009 [facility] DISEASES OF MEDICAL LUNG NOT IMAGING ELSEWHERE ASSOCIATES CLASSIFIED 21006 DIVERTICULO 07-16-2008 KASSANDRA SIS OF KARSON COLON [...] Procedure [place] [address] [facility] GLEASON RETROPERI 6 [facility] TONEAL [place] W/[place] [address] [facility] ALL RETROPERI 6 MEDICAL TONEAL IMAGING REAL TIME ASS W/IMAGE LIMITED XTRNL ECG 52614 [facility] GLEASON & 48 HR 4 [facility] RECORDING INC INC EXTERNAL 24725 [facility] GLE[facility]ON ECG 4 [facility] SCANNING INC INC ANALYSIS REPORT ECG 46138 [facility] ROUTINE 3 [facility] ECG INC INC W/LEAST 12 LDS TRCG ONLY W/O I&R ECG 93309 KRISTI JR KRISTI JR ROUTINE 3 DWI DWI ECG W/LEAST 12 LDS I&R ONLY XTRNL ECG 23496 [facility] GLEASON & 48 HR 3 [facility] RECORDING INC INC XTRNL ECG 12946 MOE GARAYSON 3 EMERY EMERY CONTINUOU S RHYTHM W/I&R UP TO 48 HRS EXTERNAL 42336 [facility] GLEASON ECG 3 [facility] SCANNING INC INC ANALYSIS REPORT REMOVAL 90467 GETACHEW CHILEL J IMPACTED 2 [place] [address] [facility] THYROID 1 DIAGNOSTI DIAGNOSTI STIMULATI CS CS NG HORMONE TSH COMPREHEN 73021 [facility] SIVE 1 DIAGNOSTI DIAGNOSTI METABOLIC CS CS PANEL COLLECTIO 95137 [facility] GLEASON N VENOUS 1 [facility] [place] [address] [facility] GLEASON THYROID 1 [facility] STIMULAT[place] [address] [facility] GLE[facility] THYROXINE 1 [facility] TOTAL INC INC TRANSFERA 87537 FAMILY GETACHEW J SE 1 CARE ASPARTATE ASSOCIATE AMINO S AST SGOT TRANSFERA 11993 FAMILY CHILEL J SE 1 CARE ALANINE ASSOCIATE AMINO ALT S SGPT COLLECTIO 78764 FAMILY CHILEL J N VENOUS 1 CARE BLOOD ASSOCIATE VENIPUNCT S URE LIPID 61384 FAMILY CHILEL J PANEL 1 FOOD CRITIC S COLLECTIO 92781 FAMILY GETACHEW J N VENOUS 0 CARE BLOOD ASSOCIATE VENIPUNCT S URE IIV3 37537 FAMILY CHILEL J VACCINE 0 CARE SPLIT ASSOCIATE VIRUS 0.5 S ML DOSAGE IM USE COMPREHEN 69892 [facility] SIVE 0 [facility] [place] [address] [facility] THYROID 0 [facility] STIMULATI NG HORMONE TSH BLOOD 57828 FAMILY FAMILY COUNT 0 CARE CARE COMPLETE ASSOCIATE ASSOCIATE AUTO&AUTO S S DIFRNTL WBC ADMINISTR G0008 FAMILY GETACHEW J ATION OF 0 CARE INFLUENZA [place] V[place] [address] [facility] GLEASON THYROID 0 [facility] STIMULATI [place] [address] [facility] GLEASON FREE 0 [facility] [place] [address] [facility] GLEASON THYROXINE 0 [facility] TOTAL INC INC COLLECTIO 61465 [facility] N VENOUS 0 [facility] BLOOD INC INC VENIPUNCT URE DXA BONE 86593 [facility] DENSITY 0 [facility] STUDY 1/> INC INC SITES AXIAL SKEL BLOOD 41399 FAMILY COSTA, COUNT 9 CARE Merline KUMARI COMPLETE ASSOCIATE AUTO&AUTO S DIFRNTL WBC ADMINISTR G0008 Vineet SILVER ATION OF 9 CARE G INFLUENZA ASSOCIATE VIRUS S VACCINE IIV3 47463 Vineet SILVER VACCINE 9 CARE G SPLIT ASSOCIATE VIRUS 0.5 S ML DOSAGE IM USE COMPREHEN 86667 [facility] SIVE [address] [facility] INC METABOLIC PANEL 25 09107 [facility] HYDROXY 9 [facility] INC INCLUDES FRACTIONS IF PERFORMED COLLECTIO 57754 Vineet SILVER N VENOUS 9 CARE G BLOOD [place] [address] [facility] THYROID 9 [facility] STIMULATI NG HORMONE TSH BLOOD 08548 FAMILY COSTA, COUNT 9 CARE Merline KUMARI COMPLETE ASSOCIATE AUTO&AUTO S DIFRNTL WBC CREATININ 58339 Vineet SILVER E OTHER 9 CARE G SOURCE ASSOCIATE S ALBUMIN 61118 Vineet SILVER URINE 9 CARE G MICROALBU ASSOCI[place] [address] [facility] GLEASON THYROXINE 9 [facility] TOTAL INC INC COLLECTIO 26898 [facility] G[facility] N VENOUS 9 [facility] BLOOD INC INC VENIPUNCT URE CALCIUM 59158 [facility] GLEASON TOTAL 9 [place] [address] [facility] G[facility] THYROID 9 [facility] STIMULATI INC INC NG HORMONE TSH RADIOLOGI 71415 [facility] Johnson EXAM 9 [facility] CHEST [address] [facility] INC VIEWS FRONTAL&L ATERAL BLOOD 06470 [facility] COUNT 9 [facility] [place] [address] [facility] THYROID 9 [facility] STIMULATI NG HORMONE TSH COMPREHEN 33584 [facility] SIVE 9 [facility] METABOLIC PANEL LIPID 22132 [facility] PANEL 9 [facility] COLLECTIO 13093 Vineet SILVER N VENOUS 8 CARE G BLOOD ASSOCIATE VENIPUNCT S URE BASIC 03415 [facility] METABOLIC 8 [facility] PANEL CALCIUM TOTAL COLOREC G0121 SCHULSTAD SCHULSTAD CANCR 8 , KARSON , KARSON SCR; COLNSCPY NOT MEET HI RISK CYANOCOBA 66508 [facility] [place] 8 [facility] VITAMIN B-12 [place] [address] [facility] FOLIC 8 [facility] [place] [address] [facility] IRON 8 [facility] COLLECTIO 64346 Vineet SILVER N VENOUS 8 CARE G BLOOD ASSOCIATE VENIPUNCT S URE COMPREHEN 76393 [facility] SIVE 8 [facility] METABOLIC PANEL IIV3 22590 Vineet SILVER VACCINE 8 CARE G SPLIT ASSOCIATE VIRUS 0.5 S ML DOSAGE IM USE COLLECTIO 70355 Vineet SILVER VENOUS 8 CARE G BLOOD ASSOCIATE VENIPUNCT S URE ADMINISTR G0008 Vineet SILVER ATION OF 8 CARE G INFLUENZA ASSOCIATE VIRUS S VACCINE Encounters Encounter Start End Date Code Location Performer Type Date OFFICE 73908 FAMILY CHILEL OUTPATIEN 7 7 CARE T VISIT ASSOCIATE 25 S MINUTES OFFICE 82151 FAMILY CHILEL OUTPATIEN 7 7 CARE T VISIT ASSOCIATE 25 S, PSC MINUTES [facility]OS[facility] - 6 6 [facility] - 4 4 [facility] - 3 3 [facility] OUTPATIEN INC T OFFICE 53216 GETACHEW Manley GETACHEW Manley OUTPATIEN 3 3 G G T VISIT 15 MINUTES [facility]OSPITAL [facility] - 3 3 [facility] INC T OFFICE 57880 GETACHEW Manley OUTPATIEN 3 3 G G T VISIT 25 MINUTES OFFICE 26209 GETACHEW Vineet GETACHEW J OUTPATIEN 2 2 G G T VISIT 25 MINUTES OFFICE 70935 LORI SANDOVAL OUTPATIEN 2 2 ELADIA ELADIA T VISIT 5 MINUTES HOSPITAL [facility] - 1 1 [facility] OUTPATIEN INC T OFFICE 14143 GETACHEW Manley OUTPATIEN 1 1 CARE T VISIT ASSOCIATE 15 S MINUTES OFFICE 40835 NAVEEN NAVEEN OUTPATIEN 1 1 JANET JANET [facility] 30 MINUTES OFFICE 96649 GETACHEW Manley OUTPATIEN 1 1 CARE T VISIT ASSOCIATE 15 S MINUTES OFFICE 82656 GETACHEW Manley OUTPATIEN 0 0 CARE T VISIT ASSOCIATE 25 S MINUTES OFFICE 37013 Vineet CHILEL OUTPATIEN 0 0 CARE G T VISIT ASSOCIATE 25 S MINUTES [facility]OSPITAL [facility] - 0 0 [facility] - 0 0 [facility] T OFFICE 22729 FAMILY Vineet CHILEL OUTPATIEN 0 0 CARE G T VISIT ASSOCIATE 25 S MINUTES OFFICE 06461 FAMILY IGOR OUTPATIEN 9 9 CARE R KENYETTA T VISIT ASSOCIATE 15 S MINUTES OFFICE 43330 FAMILY Vineet CHILEL OUTPATIEN 9 9 CARE G T VISIT ASSOCIATE 15 S MINUTES OFFICE 18671 SOLOMON NGO 9 9 CARE R KENYETTA T VISIT ASSOCIATE 15 S MINUTES OFFICE 82679 Vineet SILVER 9 9 CARE G T VISIT ASSOCIATE 25 S MINUTES OFFICE 19444 LROILORI OUTPATIEN 9 9 BRIJESH Hernandez BRIJESH G T VISIT 15 MINUTES [facility] ROS[facility]EL - 9 9 [facility] OUTPATIEN INC T OFFICE 30614 Vineet SILVER 9 9 CARE G T VISIT ASSOCIATE 25 S MINUTES OFFICE 57626 Vineet SILVER 8 8 CARE G T VISIT ASSOCIATE 25 S MINUTES OFFICE 78016 KASSANDRA CANNON CONSULTAT 8 8 , KARSON TY ION NEW/ESTAB PATIENT 60 MIN OFFICE 56356 Vineet SILVER 8 8 CARE G T VISIT ASSOCIATE 15 S MINUTES OFFICE 17954 Vineet SILVER 8 8 CARE G T VISIT ASSOCIATE 25 S MINUTES OFFICE 36885 Vineet SILVER 8 8 CARE G T VISIT ASSOCIATE 25 S MINUTES OFFICE 69032 FAMILY FAMILY CARBAJAL 8 8 CARE CARE T VISIT ASSOCIATE ASSOCIATE 15 S S MINUTES
[2017-06-17 23:53] LABS: HEMOGLOBIN 12.4 g/dL (12.2-16.2); LYMPH # 1.8 K/mm3 (0.7-4.5); LYMPH % 27.9 % (10-50.0)
--- OUTSIDE RECORDS SUMMARY | 2017-06-17 23:53 | External Medical Summary Rpt ---
Author Author ROBERTO Guo, ROBERTO Guo Organization [employer] Address Unknown Phone Unavailable
--- OUTSIDE RECORDS SUMMARY | 2017-06-17 23:53 | External Medical Summary Rpt | CCD ---
Demographics Preferred Language Chinese Marital Status Unknown Gnosticist Affiliation Unknown Race Unknown Ethnic Group Unknown Author Author , ROBERTO MEJIA Address Unknown Phone Immunization Unable to retrieve immunization data due to connection failure with Immunization Registry. Please try again later.
--- OUTSIDE RECORDS SUMMARY | 2017-06-17 23:53 | External Medical Summary Rpt | CCD ---
Demographics Preferred Language Luxembourgish Marital Status Unknown Quaker Affiliation Unknown Race Unknown Ethnic Group Unknown Author Author , ROBERTO MEJIA Address Unknown Phone Immunization Unable to retrieve immunization data due to connection failure with Immunization Registry. Please try again later.
[2017-06-18 00:18] LABS: BUN 17 mg/dL (7-18)
[2017-06-18 00:24] LABS: GFR (ESTIMATED) 48 ML/MIN (59-)
[2017-06-18 00:43] LABS: FREE THYROXIN INDEX 9.5 ug/dl (5.93-13.13)
--- NOTE | 2017-06-18 01:08 | Emergency Room Report ---
History of Present Illness Time Seen by [id number] Presenting Problem in Triage Pt arrived:Wheelchair Presenting Problem:REPORTS DIZZINESS WITH ASSOCIATED VOMITING, AND HIGH BP AT HOME. REPORTS SHE DID NOT "PASS OUT" IMMEDIATELY WHEN SHE GOT DIZZY BUT DID "FALL ASLEEP QUICKLY". DENIES FEVER OR DIARRHEA. DENIES ANY CP OR SOA. 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 N Clinical Suspician of Infection? N Mental Status: 1 - Regular (Normal Baseline) Sepsis Risk:Low Sepsis Risk Have you (or family members/close friends) recently traveled outside the [place]? N If Yes, where/when: Have you had exposure to infectious disease within the past month? N TB? Other? Specify: Source patient, RN notes reviewed, family, RN/MD Exam Limitations no limitations Comment This is a 81-year-old lady arriving to the emergency room with a variety of complaints including headache, dizziness, nausea and vomiting, also concerns of blood pressure being elevated at home. Patient has any chest pain or shortness of breath, denies any recent travel or exposure to sick contacts. After the episode of dizziness the patient fell asleep quickly which made her feel somewhat better. When she woke up her blood pressure was still elevated. ALLERGIES Coded Allergies: No Known Allergies (06/17/17) Home Medications Reported Medications Inulin/Sorbitol (Fiber Choice Chewable Tablet) 1.5 GM PO BID Calcium Carbonate (Oyster Shell Calcium) 500 MG PO DAILY DILTIAZEM HCL (Cartia Xt) 240 MG PO DAILY Lisinopril (Lisinopril 40MG) 40 MG PO DAILY METOPROLOL SUCCINATE XL (Metoprolol Succinate) 100 MG PO DAILY LEVOTHYROXINE SOD (Synthroid) 0.1 MG PO DAILY Ranitidine Hcl (Ranitidine 150MG) 150 MG PO BID FENOFIBRATE,MICRONIZED (Fenofibrate) 130 MG PO DAILY Chlordiazepoxide Hcl (Chlordiazepoxide 10MG) 5 MG PO ACHS History Medical History General CAD? No Angina: No AL: No Hypertension? Yes Hyperlipidemia? No CHF? No COPD? No Asthma? No Hernia? No CVA? No Seizures? No Diabetes? No UTI? No Stones? No GB Disease: No Hepatitis? No Cataracts? No Glaucoma? No TB? No Cancer? Yes Site: THYROID More? No Immunization Hx DT/Tetanus Unknown Surgical Hx Previous Surgery?Y PARTIAL THYROIDECTOMY Family History Family Hx Diabetes Yes CAD Yes Hypertension Yes Hyperlipidemia Yes Cancer Yes TB No Social History Smoking Hx Smoker: Never Smoker Tobacco: No Packs/day N/A Alcohol Alcohol: No Review of Systems All Other Systems Reviewed and Negative Gastrointestinal nausea Psychiatric/Neurological other (dizziness) Physical Exam Vital Signs Vital Signs Date Time Temp Pulse Resp B/P Pulse O2 O2 Flow FiO2 Ox Delivery Rate 06/18 244 98.1 69 18 115/55 95 06/18 0243 69 18 115/55 95 06/187 72 20 133/58 92 06/184 68 20 132/58 97 06/18 0041 66 16 162/67 95 06/17 2325 98.1 62 16 180/76 97 General Appearance normal appearance, WD/WN, no apparent distress Eye Exam - bilateral eye normal exam, bilateral eye PERRL, bilateral eye EOMI Respiratory Status Yes: trachea midline, chest symmetrical, non tender chest. No: respiratory distress. Lung Sounds bilateral: normal breath sounds, lungs clear. 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 No Comment 01:50am-Upon reevaluation patient appears medically stable, clinically improving , asleep, with no further complaints. Advised patient to follow up with her PCP per discharge instructions. If any worse patient advised to return promptly to this emergency room for evaluation. Results/Orders Laboratory Tests 06/18/17 0019: Urine Color Cancelled, Urine Appearance Cancelled, Urine pH Cancelled, Ur Specific [place] Cancelled 06/17/17 2343: Amylase 41, Lipase 171, TSH 0.37, Free T4 Index 9.5, Thyroxine (T4) 9.1, T3 Uptake 42 H 06/17/173: Sodium 141, Potassium 3.7, Chloride 103, Carbon Dioxide 29, BUN 17, Creatinine 1.1 H, Estimated Creat Clear 39 L, Estimated GFR (MDRD) 48 L, Glucose 125 H, Calcium 9.2, Total Bilirubin 0.4, AST 27, ALT 19, Alkaline Phosphatase 38 L, Creatine Kinase 122, CK-MB (CK-2) Rel Index 1.1, CK and CKMB Interp 1.3, Troponin I < 0.02, Total Protein 8.0, Albumin 4.3, Globulin 3.7 H, Albumin/ Globulin Ratio 1.2, WBC 6.5, RBC 4.03 L, Hgb 12.4, Hct 36.8 L, MCV 91.3, RDW 11.7, Plt Count 268, MPV 7.5, Gran % 63.9, Gran # 4.2, Lymphocytes % 27.9, Monocytes % 6.1, Eosinophils % 1.6, Basophils % 0.4, Lymphocytes # 1.8, Monocytes # 0.4, Eosinophils # 0.1, Basophils # 0.0, PUBS MCHC 33.6, MCH 30.7 Orders Procedure Date/time Status DIET-NOTHING BY MOUTH 06/18 B Active THYROID PANEL 2 (WITH TSH) 06/18 002 Complete LIPASE 06/18 0020 Complete AMYLASE 06/[address] HEAD REQ 06/18 0016 Active ELECTROCARDIOGRAM REQUEST 06/17 2338 Active IV SALINE LOCK 06/17 2338 Active CBC WITH AUTO DIFF 06/17 2338 Complete CARDIAC ENZYMES 06/17 2338 Complete CHEM 12 PROFILE 06/17 2338 Complete 12 LEAD EKG-KRISTI (INITIAL) 06/17 UNK Active CM/EKG CM/care nurse rn Rhythm Normal Sinus Rhythm Ectopy No Comments No acute ischemic changes EKG rate, NSR, rhythm, no evid. of ischemic chgs, no ectopy, normal QRS, normal NH, normal EKG, no EKG for comparison, non-spec. ST/Twave chgs, ST elevation, ST depression, LBBB, RBBB, ectopy, abnormal Q waves XRAY/CT/US XRAY/CT/US 1 XRAY chest XR interpretation by reviewed by me Xray Results no infiltrates, normal heart size, normal lung inflation milly XRAY/CT/US [address] interpretation by discussed w/radiologist CT Results normal/NAD, no fracture seen Comment See radiologist's report from virtual radiology Departure Departure Time of Disposition 020 Disposition DC Home or Self Care(routine) Clinical Impression Primary Impression: Hypertension Qualifiers: Hypertension type: unspecified Qualified Code: I10 - Essential ( primary) hypertension Secondary Impressions: Nausea and vomiting Qualifiers: Vomiting type: unspecified Vomiting Intractability: unspecified Qualified Code: R11.2 - Nausea with vomiting, unspecified Condition STABLE Referrals Kedar BENITEZ,Vineet Jorgensen (Family): 2 Days-Call Office Patient Instructions DI for Vomiting -- Adult, Treatments for High Blood Pressure: More Than Just Taking a Pill Additional Instructions Please continue your medications as currently prescribed. Keep a log with your blood pressures at home, checked twice a day, and follow up with your doctor as scheduled (this Sunday). Discharge Counseling Counseled pt/family regarding diagnosis, test results, medications/RX, home care, follow up needs Comment Please continue your medications as currently prescribed. Keep a log with your blood pressures at home, checked twice a day, and follow up with your doctor as scheduled (this Sunday). Prescriptions Current Visit Scripts ONDANSETRON HCL (Zofran 4MG Tab) 4 MG PO Q6HP PRN NAUSEA AND VOMITING #20 TAB ED Critical Care Critical Care No at 1012
--- NOTE | 2017-06-18 01:08 | Emergency Room Report ---
History of Present Illness Time Seen by [id number] Presenting Problem in Triage Pt arrived:Wheelchair Presenting Problem:REPORTS DIZZINESS WITH ASSOCIATED VOMITING, AND HIGH BP AT HOME. REPORTS SHE DID NOT "PASS OUT" IMMEDIATELY WHEN SHE GOT DIZZY BUT DID "FALL ASLEEP QUICKLY". DENIES FEVER OR DIARRHEA. DENIES ANY CP OR SOA. 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 N Clinical Suspician of Infection? N Mental Status: 1 - Regular (Normal Baseline) Sepsis Risk:Low Sepsis Risk Have you (or family members/close friends) recently traveled outside the [place]? N If Yes, where/when: Have you had exposure to infectious disease within the past month? N TB? Other? Specify: Source patient, RN notes reviewed, family, RN/MD Exam Limitations no limitations Comment This is a 81-year-old lady arriving to the emergency room with a variety of complaints including headache, dizziness, nausea and vomiting, also concerns of blood pressure being elevated at home. Patient has any chest pain or shortness of breath, denies any recent travel or exposure to sick contacts. After the episode of dizziness the patient fell asleep quickly which made her feel somewhat better. When she woke up her blood pressure was still elevated. ALLERGIES Coded Allergies: No Known Allergies (06/17/17) Home Medications Reported Medications Inulin/Sorbitol (Fiber Choice Chewable Tablet) 1.5 GM PO BID Calcium Carbonate (Oyster Shell Calcium) 500 MG PO DAILY DILTIAZEM HCL (Cartia Xt) 240 MG PO DAILY Lisinopril (Lisinopril 40MG) 40 MG PO DAILY METOPROLOL SUCCINATE XL (Metoprolol Succinate) 100 MG PO DAILY LEVOTHYROXINE SOD (Synthroid) 0.1 MG PO DAILY Ranitidine Hcl (Ranitidine 150MG) 150 MG PO BID FENOFIBRATE,MICRONIZED (Fenofibrate) 130 MG PO DAILY Chlordiazepoxide Hcl (Chlordiazepoxide 10MG) 5 MG PO ACHS History Medical History General CAD? No Angina: No ND: No Hypertension? Yes Hyperlipidemia? No CHF? No COPD? No Asthma? No Hernia? No CVA? No Seizures? No Diabetes? No UTI? No Stones? No GB Disease: No Hepatitis? No Cataracts? No Glaucoma? No TB? No Cancer? Yes Site: THYROID More? No Immunization Hx DT/Tetanus Unknown Surgical Hx Previous Surgery?Y PARTIAL THYROIDECTOMY Family History Family Hx Diabetes Yes CAD Yes Hypertension Yes Hyperlipidemia Yes Cancer Yes TB No Social History Smoking Hx Smoker: Never Smoker Tobacco: No Packs/day N/A Alcohol Alcohol: No Review of Systems All Other Systems Reviewed and Negative Gastrointestinal nausea Psychiatric/Neurological other (dizziness) Physical Exam Vital Signs Vital Signs Date Time Temp Pulse Resp B/P Pulse O2 O2 Flow FiO2 Ox Delivery Rate 06/18 244 98.1 69 18 115/55 95 06/18 0243 69 18 115/55 95 06/187 72 20 133/58 92 06/184 68 20 132/58 97 06/18 0041 66 16 162/67 95 06/17 2325 98.1 62 16 180/76 97 General Appearance normal appearance, WD/WN, no apparent distress Eye Exam - bilateral eye normal exam, bilateral eye PERRL, bilateral eye EOMI Respiratory Status Yes: trachea midline, chest symmetrical, non tender chest. No: respiratory distress. Lung Sounds bilateral: normal breath sounds, lungs clear. 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 No Comment 01:50am-Upon reevaluation patient appears medically stable, clinically improving , asleep, with no further complaints. Advised patient to follow up with her PCP per discharge instructions. If any worse patient advised to return promptly to this emergency room for evaluation. Results/Orders Laboratory Tests 06/18/17 0019: Urine Color Cancelled, Urine Appearance Cancelled, Urine pH Cancelled, Ur Specific [place] Cancelled 06/17/17 2343: Amylase 41, Lipase 171, TSH 0.37, Free T4 Index 9.5, Thyroxine (T4) 9.1, T3 Uptake 42 H 06/17/173: Sodium 141, Potassium 3.7, Chloride 103, Carbon Dioxide 29, BUN 17, Creatinine 1.1 H, Estimated Creat Clear 39 L, Estimated GFR (MDRD) 48 L, Glucose 125 H, Calcium 9.2, Total Bilirubin 0.4, AST 27, ALT 19, Alkaline Phosphatase 38 L, Creatine Kinase 122, CK-MB (CK-2) Rel Index 1.1, CK and CKMB Interp 1.3, Troponin I < 0.02, Total Protein 8.0, Albumin 4.3, Globulin 3.7 H, Albumin/ Globulin Ratio 1.2, WBC 6.5, RBC 4.03 L, Hgb 12.4, Hct 36.8 L, MCV 91.3, RDW 11.7, Plt Count 268, MPV 7.5, Gran % 63.9, Gran # 4.2, Lymphocytes % 27.9, Monocytes % 6.1, Eosinophils % 1.6, Basophils % 0.4, Lymphocytes # 1.8, Monocytes # 0.4, Eosinophils # 0.1, Basophils # 0.0, PUBS MCHC 33.6, MCH 30.7 Orders Procedure Date/time Status DIET-NOTHING BY MOUTH 06/18 B Active THYROID PANEL 2 (WITH TSH) 06/18 002 Complete LIPASE 06/18 0020 Complete AMYLASE 06/[address] HEAD REQ 06/18 0016 Active ELECTROCARDIOGRAM REQUEST 06/17 2338 Active IV SALINE LOCK 06/17 2338 Active CBC WITH AUTO DIFF 06/17 2338 Complete CARDIAC ENZYMES 06/17 2338 Complete CHEM 12 PROFILE 06/17 2338 Complete 12 LEAD EKG-KRISTI (INITIAL) 06/17 UNK Active 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 of ischemic chgs, no ectopy, normal QRS, normal MI, normal EKG, no EKG for comparison, non-spec. ST/Twave chgs, ST elevation, ST depression, LBBB, RBBB, ectopy, abnormal Q waves XRAY/CT/US XRAY/CT/US 1 XRAY chest XR interpretation by reviewed by me Xray Results no infiltrates, normal heart size, normal lung inflation milly XRAY/CT/US [address] interpretation by discussed w/radiologist CT Results normal/NAD, no fracture seen Comment See radiologist's report from virtual radiology Departure Departure Time of Disposition 020 Disposition DC Home or Self Care(routine) Clinical Impression Primary Impression: Hypertension Qualifiers: Hypertension type: unspecified Qualified Code: I10 - Essential ( primary) hypertension Secondary Impressions: Nausea and vomiting Qualifiers: Vomiting type: unspecified Vomiting Intractability: unspecified Qualified Code: R11.2 - Nausea with vomiting, unspecified Condition STABLE Referrals Kedar BENITEZ,Vineet Jorgensen (Family): 2 Days-Call Office Patient Instructions DI for Vomiting -- Adult, Treatments for High Blood Pressure: More Than Just Taking a Pill Additional Instructions Please continue your medications as currently prescribed. Keep a log with your blood pressures at home, checked twice a day, and follow up with your doctor as scheduled (this Sunday). Discharge Counseling Counseled pt/family regarding diagnosis, test results, medications/RX, home care, follow up needs Comment Please continue your medications as currently prescribed. Keep a log with your blood pressures at home, checked twice a day, and follow up with your doctor as scheduled (this Sunday). Prescriptions Current Visit Scripts ONDANSETRON HCL (Zofran 4MG Tab) 4 MG PO Q6HP PRN NAUSEA AND VOMITING #20 TAB ED Critical Care Critical Care No at 1015
[2017-06-18] MEDS ORDERED: ZOFRAN4 MG PO (02:12)
[2017-06-18 02:44] VITALS: BP 115/55
--- NOTE | 2017-06-18 07:12 | RADIOLOGY REPORT PS360 ---
CT HEAD WITHOUT CONTRAST CT BONE WINDOWS included ORDERING PHYSICIAN : Moe Ruvalcaba MD PATIENT AGE: 81 years GENDER: Female PROCEDURE: Routine axial images headwithout contrast. Brain & bone windows HISTORY: VERTIGO. Dizzy & vertigo COMPARISON: No previous FINDINGS: No acute intracranial findings. No hemorrhage. No mass effect or mass lesion. No subdural nor extra-axial collection. Diffuse cerebral atrophy yields prominent CSF spaces overlying the brain most evident overlying the frontal lobes.Suspect deep white matter small vessel microvascular ischemic, gliotic changes developing as well typical for aging brain . Ventricles & basal cisterns appear satisfactory. The posterior fossa appear satisfactory and unremarkable. The skull is intact. Generous thickness throughout The visualized portions of the paranasal sinuses are clear. Mastoid air cells, middle ear & IACs are unremarkable. The CP angles unremarkable on this noncontrast study IMPRESSION: No acute intracranial findings. Cerebral atrophy.
== END 2017-06-18 02:45 | disposition home or self-care (01) ==
LOC: ER 23:15
PROVIDERS: Emergency Medicine
DX: I10 Essential (primary) hypertension (principal); R42 Dizziness and giddiness; R11.2 Nausea with vomiting, unspecified
CPT/HCPCS: J2405